=== PATIENT | female | born 1985 | race Caucasian/White ===

== ENCOUNTER 2020-12-23 15:43 | Emergency (ER) | payer OTHER, MEDICAID ==
[~2020-12-23] VITALS: Ht 160 cm; Wt 88.9 kg
[2020-12-23 16:21] LABS: BASOPHILS % (AUTO) 1 % (0-1); EOSINOPHILS % (AUTO) 1 % (1-7); LYMPHOCYTES % (AUTO) 28 % (22-44); MEAN CORPUSCULAR HEMOGLOBIN 30.3 pg (27.0-34.8); MEAN PLATELET VOLUME 9.1 fL (7.4-10.4); MONOCYTES % (AUTO) 7 % (2-9); NEUTROPHILS % (AUTO) 63 % (42-75); PLATELET COUNT 257 x10^3/uL (130-400); RED CELL DISTRIBUTION WIDTH 13.1 % (9.6-15.2)
[2020-12-23 16:37] LABS: ALANINE AMINOTRANSFERASE 21 U/L (12-78); ALBUMIN 3.8 g/dL (3.4-5.0); ANION GAP 5 mmol/L (5-15); CALCIUM 8.7 mg/dL (8.5-10.1); CHLORIDE 112 mmol/L (98-107); CREATININE 1.04 mg/dL (0.55-1.02)
[2020-12-23 16:41] LABS: ALKALINE PHOSPHATASE 95 U/L (45-117); BILIRUBIN,TOTAL 0.3 mg/dL (0.2-1.0)
--- NOTE | 2020-12-23 19:49 | NUR ---
PT. TO ROOM FROM LOBBY AT THIS TIME.
[2020-12-23 20:13] LABS: MICROSCOPIC AUTO
--- NOTE | 2020-12-23 20:15 | NUR ---
PT. TO ED WITH C/O LEG PAIN R/T DIAGNOSIS OF NEUROMYELITIS OPTICA(NMO). PT. STATES THAT SHE HAS BEEN CONSIDERED TO BE IN REMISSION FOR 2 YEARS AND RECEIVES IVIG INFUSIONS Q 6 WEEKS. LAST INFUSION WAS NOVEMBER 23. PT. STATES THE LEG PAIN FEELS LIKE SHE USED TO BEFORE SHE WAS CONSIDERED TO BE IN REMISSION. PT. ALSO C/O UTI SYMPTOMS DESPITE TAKING LEVAQUIN SINCE WED LAST WEEK FOR DX OF UTI. PT. ALSO C/O NAUSEA.
[2020-12-23] MEDS ORDERED: ONDANSETRON ODT 4 MG ONE ×2 (20:26→20:50)
[2020-12-23] MEDS ORDERED: ONDANSETRON ODT 4 MG PO ONE ×2 (20:30→22:00)
[2020-12-23] MEDS ORDERED: CEFTRIAXONE 1,000 MG in DEXTROSE 5% 50 ML IVPB ONE (21:00)
[2020-12-23 21:43] VITALS: BP 116/55
== END 2020-12-23 21:51 | disposition home or self-care (01) ==
LOC: ED 21:45
DX: N30.01 Acute cystitis with hematuria (principal); R30.0 Dysuria; R94.31 Abnormal electrocardiogram [ECG] [EKG]; R10.9 Unspecified abdominal pain; M79.662 Pain in left lower leg; M79.661 Pain in right lower leg; Z87.891 Personal history of nicotine dependence
CPT/HCPCS: 36415; 71046; 80053; 81001; 83690; 84703; 85025; 87086; 93005; 96365; 99285; J0696; Q0162